=== PATIENT | female | born 1995 | race Caucasian/White ===

== ENCOUNTER 2021-07-20 17:04 | Emergency (ER) | payer MEDICAID, SELFPAY ==
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
[2021-07-20] MEDS: HYDROmorphone 2 MG/ML VIAL 1 MG IM (17:44)
[2021-07-20] MEDS: Ketorolac 15 MG/ML VIAL IVP (17:49)
[2021-07-20] MEDS: Normal Saline 1,000 ML 1000 ML IV (17:55)
[2021-07-20 17:59] VITALS: BP 140/88; PULSE 82; RESP 24; TEMP 36.6; O2SAT 97
[2021-07-20 18:06] LABS: HCT 42.9 % (36.0-46.0); HGB 14.8 g/dL (11.2-15.7); MCH 30.6 pg (27.0-33.0); MCHC 34.5 % (32.0-36.0); MCV 88.6 fL (80-95); MPV 9.4 fL (8.0-11.0); Platelet Count 271 10^3/uL (130-400); RBC 4.84 10^6/uL (3.93-5.22); RDW 12.4 % (11.7-14.6); RDW-SD 40.8 fL; WBC 14.28 10^3/uL (4.4-10.8)
[2021-07-20 18:14] LABS: Anion Gap 12.9 mmol/L (3-11); BUN 19 mg/dL (7-18); CO2 22.1 mmol/L (21.0-32.0); CREATININE 0.8 mg/dL (0.55-1.02); Calcium 9.2 mg/dL (8.5-10.1); Chloride 103 mmol/L (98-107); Creatine Kinase 97 U/L (26-192); Glucose 108 mg/dL (74-106); Potassium 3.5 mmol/L (3.5-5.1); Sodium 138 mmol/L (136-145)
[2021-07-20] MEDS: HYDROmorphone 2 MG/ML VIAL 1 MG IVP (18:30)
[2021-07-20] MEDS: Tetanus & Diphtheria Tox,ADULT 0.5 ML VIAL IM (19:01)
[2021-07-20] MEDS: HYDROmorphone 2 MG/ML VIAL 0.5 MG IVP (19:02)
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
== END 2021-07-20 19:24 | disposition home or self-care (01) ==
LOC: ER 19:20
PROVIDERS: Emergency Provider Emergency Medicine
DX: T23.251A Burn of second degree of right palm, initial encounter (principal); T23.231A Burn of second degree of multiple right fingers (nail), not including thumb, initial encounter; T24.211A Burn of second degree of right thigh, initial encounter; T21.22XA Burn of second degree of abdominal wall, initial encounter; T22.231A Burn of second degree of right upper arm, initial encounter; T21.21XA Burn of second degree of chest wall, initial encounter; T31.0 Burns involving less than 10% of body surface; X06.2XXA Exposure to ignition of other clothing and apparel, initial encounter; X04.XXXA Exposure to ignition of highly flammable material, initial encounter
CPT/HCPCS: 16025; 36415; 80048; 82550; 85027; 90471; 96361; 96372; 96374; 96375; 96376; J1885

== ENCOUNTER 2021-07-22 21:20 | Emergency (ER) | payer MEDICAID, SELFPAY ==
[2021-07-22 21:28] VITALS: BP 134/77; PULSE 90; RESP 18; TEMP 36.9; O2SAT 100
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
[2021-07-22] MEDS: Cephalexin 500 MG CAP, 4 CAPS/BTL PO (21:38)
== END 2021-07-22 21:48 | disposition home or self-care (01) ==
PROVIDERS: Emergency Provider Student in an Organized Health Care Education/Training Program
DX: L03.111 Cellulitis of right axilla (principal); T22.23 Burn of second degree of upper arm; X06.2XXA Exposure to ignition of other clothing and apparel, initial encounter
CPT/HCPCS: 99283

== ENCOUNTER 2022-02-11 16:35 | Emergency (ER) | payer MEDICAID, SELFPAY ==
[2022-02-11 16:37] VITALS: BP 127/84; PULSE 75; RESP 16; TEMP 36.8; O2SAT 97
[2022-02-11] MEDS: Dexamethasone 10 MG/ML VIAL IVP (17:09)
[2022-02-11] MEDS: Prochlorperazine 10 MG/2 ML VIAL IVP (17:10)
[2022-02-11] MEDS: diphenhydrAMINE 50 MG/ML VIAL 25 MG IVP (17:10)
[2022-02-11] MEDS: Normal Saline 50 ML 100 ML (17:11)
[2022-02-11] MEDS: ACETAMINOPHEN 1,000 MG/100 ML BTL 400 MG IVPB (17:11)
--- NOTE | 2022-02-11 18:00 | RT.EKG_ITS ---
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
[2022-02-11] MEDS: Haloperidol 5 MG/ML VIAL 2.5 MG IM/IV (18:29)
[2022-02-11] MEDS: Prochlorperazine 10 MG TAB PO (19:16)
[2022-02-11 19:17] VITALS: BP 112/71; PULSE 62; RESP 18; O2SAT 98
== END 2022-02-11 19:16 | disposition home or self-care (01) ==
PROVIDERS: Emergency Provider Physician Assistant; PCP Physician Assistant
DX: G43.909 Migraine, unspecified, not intractable, without status migrainosus (principal)
CPT/HCPCS: 93005; 96374; 96375; 99284; 93010; J0131; J0780; J1100; J1200; J1630

== ENCOUNTER 2022-03-09 21:09 | Emergency (ER) | payer OTHER, SELFPAY ==
[2022-03-09 21:13] VITALS: BP 141/76; PULSE 70; RESP 18; TEMP 37.1; O2SAT 99
[2022-03-09 21:48] VITALS: RESP 18
[2022-03-09 21:53] LABS: Abs Immature Grans 0.02 10^3/uL (0.0-0.06); Absolute Basophil Count 0.05 10^3/uL (0.0-0.2); Absolute Eosinophil Count 0.17 10^3/uL (0.0-0.7); Absolute Lymphocyte Count 2.63 10^3/uL (1.2-3.4); Absolute Monocyte Count 0.79 10^3/uL (0.1-0.8); Absolute Neutrophil Count 4.38 10^3/uL (1.2-6.7); Basophils % 0.6; Eosinophils % 2.1; HCT 42.7 % (36.0-46.0); HGB 14.7 g/dL (11.2-15.7); Immature Grans % 0.2; Lymphocytes % 32.7; MCH 31.3 pg (27.0-33.0); MCHC 34.4 % (32.0-36.0); MCV 91 fL (80-95); MPV 9.4 fL (8.0-11.0); Monocytes % 9.8; Neutrophils % 54.6; Platelet Count 228 10^3/uL (130-400); RDW 12.3 % (11.7-14.6); RDW-SD 41.1 fL; WBC 8.04 10^3/uL (4.4-10.8)
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
[2022-03-09] MEDS: Normal Saline 1,000 ML 1000 ML IV (22:03)
[2022-03-09] MEDS: diphenhydrAMINE 50 MG/ML VIAL 25 MG IVP (22:03)
[2022-03-09] MEDS: Dexamethasone 10 MG/ML VIAL IVP (22:03)
[2022-03-09] MEDS: Metoclopramide 10 MG/2 ML VIAL IVP (22:03)
[2022-03-09] MEDS: LORazepam 20 MG/10 ML VIAL IVP (22:03)
[2022-03-09 22:12] LABS: ALT 22 U/L (14-59); AST 19 U/L (15-37); Alkaline Phosphatase 52 U/L (46-116); BUN 12 mg/dL (7-18); Bilirubin, Total 0.4 mg/dL (0.2-1.0); CREATININE 0.9 mg/dL (0.55-1.02); Chloride 106 mmol/L (98-107); Glucose 92 mg/dL (74-106); Potassium 3.5 mmol/L (3.5-5.1); Sodium 141 mmol/L (136-145); Total Protein 7.5 g/dL (6.4-8.2)
[2022-03-09 23:25] VITALS: BP 130/71; PULSE 77; RESP 17; O2SAT 99
== END 2022-03-09 23:31 | disposition home or self-care (01) ==
PROVIDERS: Emergency Provider Emergency Medicine; PCP Physician Assistant
DX: R51.9 Headache, unspecified (principal); R11.0 Nausea
CPT/HCPCS: 80053; 96361; 96374; 96375; 99284; 85025; 99283; J1100; J1200; J2765; J3490

== ENCOUNTER 2022-05-05 19:31 | Emergency (ER) | payer MEDICAID, SELFPAY ==
[2022-05-05 19:44] VITALS: BP 120/85; PULSE 84; RESP 16; TEMP 36.5; O2SAT 99
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
[2022-05-05] MEDS: Normal Saline 1,000 ML 1000 ML IV (20:20)
[2022-05-05] MEDS: Dexamethasone 10 MG/ML VIAL IVP (20:33)
[2022-05-05] MEDS: Prochlorperazine 10 MG/2 ML VIAL IVP (20:34)
[2022-05-05] MEDS: diphenhydrAMINE 50 MG/ML VIAL 25 MG IVP (20:34)
[2022-05-05] MEDS: Ketorolac 15 MG/ML VIAL IVP (20:34)
== END 2022-05-05 22:46 | disposition home or self-care (01) ==
PROVIDERS: Emergency Provider Emergency Medicine; PCP Physician Assistant
DX: G43.909 Migraine, unspecified, not intractable, without status migrainosus (principal); F17.210 Nicotine dependence, cigarettes, uncomplicated
CPT/HCPCS: 96361; 96374; 96375; 99283; 99284; J0780; J1100; J1200; J1885

== ENCOUNTER 2022-05-31 11:54 | Emergency (ER) | payer MEDICAID, SELFPAY ==
[2022-05-31 12:04] VITALS: BP 106/74; PULSE 95; RESP 16; TEMP 36.8; O2SAT 98
--- NOTE | 2022-05-31 12:57 | DI.RAD_ITS ---
Exam(s) XR FOOT RT COMPLETE EXAM: XR FOOT RT COMPLETE CLINICAL HISTORY: pain right lateral foot TECHNIQUE: COMPARISON: No exams were available for comparison FINDINGS: Three views were obtained. No bony or soft tissue abnormality seen. IMPRESSION: Negative radiographs of the foot. RADIATION DOSE DELIVERED: Total DLP
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
== END 2022-05-31 15:27 | disposition home or self-care (01) ==
PROVIDERS: Emergency Provider Physician Assistant; PCP Physician Assistant
DX: M77.41 Metatarsalgia, right foot (principal); F17.210 Nicotine dependence, cigarettes, uncomplicated
CPT/HCPCS: 99283; 73630; 99282